=== PATIENT | female | born 1995 | race Caucasian/White ===

== ENCOUNTER 2017-03-16 21:50 | Emergency (ER) | payer SELFPAY ==
[~2017-03-16] VITALS: Ht 154.9 cm; Wt 59.0 kg
--- NOTE | 2017-03-16 23:30 | NUR ---
To bed 6 a 21 yo female bibself with c/o "ulcerative flare up". Patient is aaox4, ambulatory, VSS. Per patient she had a total of 9 bloody stools today. Nondiaphoretic. Gowned. Placed on monitor. Awaiting for er md arias.
--- NOTE | 2017-03-16 23:55 | NUR ---
Dr Rose at bedside for eval.
[2017-03-16] MEDS ORDERED: IV NS 0.9% 1,000 ML ONE (23:59)
[2017-03-16] MEDS ORDERED: IV SET PRIMARY 1 EA INFUS.SET MC ONE (23:59)
[2017-03-16] MEDS ORDERED: HYDROMORPHONE 1 MG/1 ML DISP.SYRIN ONE (23:59)
[2017-03-17] MEDS ORDERED: ONDANSETRON HCL/PF 4 MG/2 ML VIAL IVP ONE
[2017-03-17] MEDS ORDERED: methylPREDNISolone SOD SUCC 125 MG/2ML VIAL IV ONE
[2017-03-17] MEDS ORDERED: IV NS 0.9% 1,000 ML BAG IV ONE
[2017-03-17] MEDS ORDERED: KETOROLAC TROMETHAMINE INJ 30 MG/ML VIAL IV ONE
[2017-03-17] MEDS ORDERED: PANTOPRAZOLE 40 MG VIAL IV ONE
[2017-03-17] MEDS ORDERED: HYDROMORPHONE INJ 2 MG/ML DISP.SYRIN IV ONE
--- NOTE | 2017-03-17 | NUR ---
started a saline lock on the right ac g20, blood drawn and sent to lab.
[2017-03-17] MEDS ORDERED: KETOROLAC TROMETHAMINE 15 MG/ML VIAL ONE (00:04)
[2017-03-17] MEDS ORDERED: SECONDARY IV SET 1 EA INFUS.SET MC ONE (00:05)
[2017-03-17] MEDS ORDERED: methylPREDNISolone SOD SUCC 125 MG/2ML VIAL ONE (00:05)
[2017-03-17] MEDS ORDERED: IV NS 0.9% 100 ML IV ONE (00:05)
[2017-03-17] MEDS ORDERED: ONDANSETRON HCL/PF 4 MG/2 ML VIAL ONE (00:05)
[2017-03-17 00:14] LABS: BASOPHILS # (AUTO) 0.1 /CMM (0.0-0.2); BASOPHILS % (AUTO) 0.6 % (0.0-2.0); EOSINOPHILS # (AUTO) 0.7 /CMM (0.0-0.7); EOSINOPHILS % (AUTO) 6.6 % (0.0-6.0); HEMATOCRIT 36 % (33-45); HEMOGLOBIN 11.7 g/dL (11.5-14.8); LYMPHOCYTES # (AUTO) 2.3 /CMM (0.8-4.8); LYMPHOCYTES % (AUTO) 20.9 % (20.0-44.0); MEAN CORPUSCULAR HEMOGLOBIN 27 PG (26.0-33.0); MEAN CORPUSCULAR HGB CONC 33 g/dl (31.0-36.0); MEAN CORPUSCULAR VOLUME 82 fL (82-100); MONOCYTES % (AUTO) 9.1 % (2.0-12.0); NEUTROPHILS # (AUTO) 6.9 /CMM (1.8-8.9); NEUTROPHILS % (AUTO) 62.8 % (43.0-81.0); PLATELET COUNT (AUTO) 401 /CMM (150-450); RDW COEFFICIENT OF VARIATION 14.4 (11.5-15.0); RED BLOOD CELL COUNT(AUTO) 4.38 MIL/uL (4.0-5.2)
[2017-03-17] MEDS ORDERED: PANTOPRAZOLE 40 MG VIAL ONE (00:16)
[2017-03-17 00:34] LABS: CALCIUM, SERUM 8.3 mg/dL (8.5-10.1); CREATININE 0.7 mg/dL (0.6-1.3); POTASSIUM 3.5 mmol/L (3.5-5.1)
[2017-03-17 00:40] LABS: ALBUMIN 3.8 g/dL (3.4-5.0); BILIRUBIN,TOTAL 0.2 mg/dL (0.2-1.0); TOTAL PROTEIN, SERUM 7.3 g/dL (6.4-8.2)
--- NOTE | 2017-03-17 02:27 | NUR ---
dIV removed. Catheter intact and site benign. Pressure and 4x4 applied to site. No bleeding noted. Patient discharged to home in stable condition. Written and verbal after care instructions given. Patient verbalizes understanding of instruction. Patient is ambulatory with steady gait. No futher complaints.
[2017-03-17 02:30] VITALS: BP 110/68
== END 2017-03-17 02:30 | disposition home or self-care (01) ==
LOC: ER 21:52
DX: K51.90 Ulcerative colitis, unspecified, without complications (principal); F17.210 Nicotine dependence, cigarettes, uncomplicated
CPT/HCPCS: 36415; 71010; 76705; 80048; 80076; 83690; 84484; 85025; 93005; 96361; 96374; 96375; 99285; 99406; A4606 ×2; C9113; J1170; J1885; J2405; J2930; J7030 ×2; Z7610 ×2

== ENCOUNTER 2017-03-30 17:59 | Emergency (ER) | payer SELFPAY ==
[~2017-03-30] VITALS: Ht 154.9 cm; Wt 50.3 kg
--- NOTE | 2017-03-30 18:12 | NUR ---
CALLED TO TRIAGE, WENT OUT TO SMOKE PER ADMITTING
--- NOTE | 2017-03-30 18:21 | NUR ---
2ND CALL, PATIENT IS NOT IN THE WAITING ROOM.
--- NOTE | 2017-03-30 18:24 | NUR ---
PT C/O RECTAL BLEED X 2 MONTHS, BOWEL MOVEMENT ABOUT 22 EPISODES TODAY WITH RED BLOOD, ABDOMINAL PAIN +VOMITING, PLACED ON MONITOR. VSS. AWAITING MD ORDER
[2017-03-30] MEDS ORDERED: IV SET PRIMARY PUMP SET 1 EA INFUS.SET MC ONE (18:54)
[2017-03-30] MEDS ORDERED: methylPREDNISolone SOD SUCC 125 MG/2ML VIAL ONE (18:54)
[2017-03-30] MEDS ORDERED: IV NS 0.9% 1,000 ML ONE (18:54)
[2017-03-30] MEDS ORDERED: ONDANSETRON HCL/PF 4 MG/2 ML VIAL ONE (18:56)
[2017-03-30] MEDS ORDERED: methylPREDNISolone SOD SUCC 125 MG/2ML VIAL IV ONE (19:00)
[2017-03-30] MEDS ORDERED: ONDANSETRON HCL/PF 4 MG/2 ML VIAL IV ONE (19:00)
[2017-03-30] MEDS ORDERED: IV NS 0.9% 1,000 ML BAG IV ONE (19:00)
[2017-03-30 19:02] LABS: APPEARANCE,URINE Clear (CLEAR); BILIRUBIN,URINE Negative (NEGATIVE); BLOOD, URINE Negative Ery/uL (NEGATIVE); COLOR,URINE Yellow (YELLOW); KETONES,URINE Negative (NEGATIVE); LEUKOCYTE ESTERASE ,URINE Negative (NEGATIVE); NITRITE, URINE Negative (NEGATIVE); PROTEIN,URINE Negative (NEGATIVE); UGLUCOSE Negative (NEGATIVE); UROBILINOGEN,URINE 0.2 EU/dL (0.2)
[2017-03-30 19:03] LABS: BASOPHILS # (AUTO) 0.1 /CMM (0.0-0.2); BASOPHILS % (AUTO) 0.8 % (0.0-2.0); EOSINOPHILS # (AUTO) 0.5 /CMM (0.0-0.7); EOSINOPHILS % (AUTO) 5.2 % (0.0-6.0); HEMATOCRIT 31 % (33-45); HEMOGLOBIN 10.7 g/dL (11.5-14.8); LYMPHOCYTES # (AUTO) 1.9 /CMM (0.8-4.8); LYMPHOCYTES % (AUTO) 20.2 % (20.0-44.0); MEAN CORPUSCULAR HEMOGLOBIN 28 PG (26.0-33.0); MEAN CORPUSCULAR HGB CONC 34 g/dl (31.0-36.0); MEAN CORPUSCULAR VOLUME 81 fL (82-100); MONOCYTES # (AUTO) 0.9 /CMM (0.1-1.30); MONOCYTES % (AUTO) 9.4 % (2.0-12.0); NEUTROPHILS # (AUTO) 5.8 /CMM (1.8-8.9); NEUTROPHILS % (AUTO) 64.4 % (43.0-81.0); PLATELET COUNT (AUTO) 359 /CMM (150-450); RDW COEFFICIENT OF VARIATION 13.7 (11.5-15.0); RED BLOOD CELL COUNT(AUTO) 3.83 MIL/uL (4.0-5.2); WHITE BLOOD COUNT (AUTO) 9.2 K/uL (4.3-11.0)
[2017-03-30 19:04] LABS: PREGNANCY TEST URINE QUAL NEGATIVE (NEGATIVE)
--- NOTE | 2017-03-30 19:05 | NUR ---
IV ACCESS STARTED. BLOOD DRAWN FOR LABS. PT MEDICATED ORDERED. URINE SAMPLE OBTAINED, SENT.
[2017-03-30 19:07] LABS: CREATININE 0.8 mg/dL (0.6-1.3); POTASSIUM 3.6 mmol/L (3.5-5.1)
[2017-03-30 19:13] LABS: ALBUMIN 3.4 g/dL (3.4-5.0); BILIRUBIN,TOTAL 0.1 mg/dL (0.2-1.0); TOTAL PROTEIN, SERUM 6.9 g/dL (6.4-8.2)
--- NOTE | 2017-03-30 19:19 | NUR ---
PT REPORT RECIVED FROM TATYANA POND, PT IN BED AND STATES SHE IS HVAING SOME RECTAL PAIN, PT FRIEND AT BEDSIDE, PT ON MONITOR, WILL CONTINUE TO MONITOR.
[2017-03-30 20:04] VITALS: BP 110/81
--- NOTE | 2017-03-30 20:04 | NUR ---
Patient discharged to home in stable condition. Written and verbal after care instructions given. Patient verbalizes understanding of instruction.IV removed. Catheter intact and site benign. Pressure and 4x4 applied to site. No bleeding noted.
== END 2017-03-30 20:04 | disposition home or self-care (01) ==
LOC: ER 18:00
DX: K51.90 Ulcerative colitis, unspecified, without complications (principal); F17.210 Nicotine dependence, cigarettes, uncomplicated
CPT/HCPCS: 36415; 80048; 80076; 81001; 84703; 85025; 96361; 96374; 96375; 99284; A4606; J2405; J2930; J7030; Z7610; 81000-TC

== ENCOUNTER 2017-04-04 08:05 | Emergency (ER) | payer SELFPAY ==
[~2017-04-04] VITALS: Ht 154.9 cm; Wt 49.9 kg
--- NOTE | 2017-04-04 08:11 | NUR ---
AAOX3, bbra from [place]: pt states rectal bleeding on/off x 2 months, hx of ulcerative colitis. skin is warm and dry. resp is even and unlabored with nad noted. Patient was seen here last 03/30/[address] Resendez at BS for eval.
--- NOTE | 2017-04-04 08:15 | NUR ---
DR MCGARRY AT BEDSIDE FOR EVAL
--- NOTE | 2017-04-04 08:18 | NUR ---
pt to ed room 21. bbra from [facility]: pt states rectal bleeding x 2 days, hx of uc. a/a/o. vs wnl. changed to gown. connected to monitor. side rails up. hob elevated. seen and evaluated by ed provider.
[2017-04-04] MEDS ORDERED: IV NS 0.9% 1,000 ML ONE (08:20)
[2017-04-04] MEDS ORDERED: ONDANSETRON HCL/PF 4 MG/2 ML VIAL ONE (08:20)
[2017-04-04] MEDS ORDERED: IV SET PRIMARY 1 EA INFUS.SET MC ONE (08:20)
[2017-04-04] MEDS ORDERED: MORPHINE SULFATE INJ 4 MG/ML DISP.SYRIN ONE (08:20)
--- NOTE | 2017-04-04 08:20 | NUR ---
RAC #[id number] IV ACCESS. BLOOD SAMPLE COLLECTED SENT TO LAB
--- NOTE | 2017-04-04 08:20 | NUR ---
URINE SAMPLE COLLECTED SENT TO LAB
[2017-04-04] MEDS ORDERED: MORPHINE SULFATE INJ 2 MG/ML DISP.SYRIN IV ONE (08:30)
[2017-04-04] MEDS ORDERED: ONDANSETRON HCL/PF 4 MG/2 ML VIAL IVP ONE (08:30)
[2017-04-04] MEDS ORDERED: IV NS 0.9% 1,000 ML BAG IV ONE (08:30)
[2017-04-04 08:43] LABS: BASOPHILS % (AUTO) 0.4 % (0.0-2.0); EOSINOPHILS # (AUTO) 0.5 /CMM (0.0-0.7); EOSINOPHILS % (AUTO) 4.2 % (0.0-6.0); HEMATOCRIT 38 % (33-45); HEMOGLOBIN 12.3 g/dL (11.5-14.8); LYMPHOCYTES # (AUTO) 1.9 /CMM (0.8-4.8); LYMPHOCYTES % (AUTO) 16.7 % (20.0-44.0); MEAN CORPUSCULAR HEMOGLOBIN 26 PG (26.0-33.0); MEAN CORPUSCULAR HGB CONC 33 g/dl (31.0-36.0); MEAN CORPUSCULAR VOLUME 79 fL (82-100); MONOCYTES # (AUTO) 1.4 /CMM (0.1-1.30); MONOCYTES % (AUTO) 12.3 % (2.0-12.0); NEUTROPHILS # (AUTO) 7.5 /CMM (1.8-8.9); NEUTROPHILS % (AUTO) 66.4 % (43.0-81.0); PLATELET COUNT (AUTO) 522 /CMM (150-450); RDW COEFFICIENT OF VARIATION 14.2 (11.5-15.0); RED BLOOD CELL COUNT(AUTO) 4.75 MIL/uL (4.0-5.2); WHITE BLOOD COUNT (AUTO) 11.3 K/uL (4.3-11.0)
[2017-04-04 08:44] LABS: APPEARANCE,URINE SL CLOUDY (CLEAR); BILIRUBIN,URINE 1+ (NEGATIVE); BLOOD, URINE 1+ Ery/uL (NEGATIVE); COLOR,URINE YELLOW (YELLOW); KETONES,URINE NEGATIVE (NEGATIVE); LEUKOCYTE ESTERASE ,URINE NEGATIVE (NEGATIVE); NITRITE, URINE NEGATIVE (NEGATIVE); PH,URINE 5.5 (5.0-8.0); PROTEIN,URINE NEGATIVE (NEGATIVE); UGLUCOSE NEGATIVE (NEGATIVE); UROBILINOGEN,URINE 0.2 EU/dL (0.2)
[2017-04-04 08:48] LABS: PREGNANCY TEST URINE QUAL NEGATIVE (NEGATIVE)
[2017-04-04 08:51] LABS: ADD URINE CULTURE NO; BACTERIA,URINE Few /HPF (None Seen); SQUAMOUS EPITHELIAL CELL,UR Few /HPF (None Seen); WBC,URINE 0-2 /HPF (0-3)
[2017-04-04 08:53] LABS: CALCIUM, SERUM 9.2 mg/dL (8.5-10.1); CREATININE 0.7 mg/dL (0.6-1.3); POTASSIUM 4.1 mmol/L (3.5-5.1)
[2017-04-04 08:59] LABS: ALBUMIN 4.1 g/dL (3.4-5.0); BILIRUBIN,DIRECT 0.1 mg/dL (0.0-0.2); BILIRUBIN,TOTAL 0.3 mg/dL (0.2-1.0); TOTAL PROTEIN, SERUM 8.4 g/dL (6.4-8.2)
[2017-04-04 09:17] VITALS: BP 116/81
--- NOTE | 2017-04-04 09:17 | NUR ---
IV removed. Catheter intact and site benign. Pressure and 4x4 applied to site. No bleeding noted.Patient discharged to home in stable condition. Written and verbal after care instructions given. Patient verbalizes understanding of instruction.
== END 2017-04-04 09:18 | disposition home or self-care (01) ==
LOC: ER 08:07
DX: K51.90 Ulcerative colitis, unspecified, without complications (principal); F17.200 Nicotine dependence, unspecified, uncomplicated
CPT/HCPCS: 36415; 80048; 80076; 81001; 83690; 84703; 85025; 96361; 96374; 96375; 99284; A4606; J2270; J2405; J7030; Z7610; 81000-TC

== ENCOUNTER 2017-09-04 10:37 | Emergency (ER) | payer MEDICAID, OTHER ==
[~2017-09-04] VITALS: Ht 154.9 cm; Wt 52.6 kg
--- NOTE | 2017-09-04 10:40 | NUR ---
[id number]: ABDOMINAL PAIN. A/OX 4. BREATHING EVEN AND UNLABORED. NO SOB. VITALS STABLE. SAFETY AND COMFORT MEASURES IN PLACE. AWAITING MD ORDERS.
[2017-09-04] MEDS ORDERED: ONDANSETRON HCL/PF 4 MG/2 ML VIAL ONE (11:26)
[2017-09-04] MEDS ORDERED: HYDROMORPHONE INJ 2 MG/ML DISP.SYRIN ONE (11:27)
[2017-09-04] MEDS ORDERED: ONDANSETRON HCL/PF 4 MG/2 ML VIAL IVP ONE (11:30)
[2017-09-04] MEDS ORDERED: IV NS 0.9% 1,000 ML BAG IV ONE (11:30)
[2017-09-04] MEDS ORDERED: HYDROMORPHONE INJ 2 MG/ML DISP.SYRIN IV ONE (11:30)
--- NOTE | 2017-09-04 11:30 | NUR ---
URINE AND BLOOD SAMPLE SENT TO LAB
[2017-09-04 11:39] LABS: BASOPHILS % (AUTO) 0.1 % (0.0-2.0); EOSINOPHILS # (AUTO) 0.1 /CMM (0.0-0.7); EOSINOPHILS % (AUTO) 0.9 % (0.0-6.0); HEMATOCRIT 32 % (33-45); HEMOGLOBIN 9.7 g/dL (11.5-14.8); LYMPHOCYTES % (AUTO) 9.6 % (20.0-44.0); MEAN CORPUSCULAR HEMOGLOBIN 21 PG (26.0-33.0); MEAN CORPUSCULAR HGB CONC 31 g/dl (31.0-36.0); MEAN CORPUSCULAR VOLUME 67 fL (82-100); MONOCYTES # (AUTO) 1.3 /CMM (0.1-1.30); MONOCYTES % (AUTO) 11.7 % (2.0-12.0); NEUTROPHILS # (AUTO) 8.3 /CMM (1.8-8.9); NEUTROPHILS % (AUTO) 77.7 % (43.0-81.0); PLATELET COUNT (AUTO) 435 /CMM (150-450); RDW COEFFICIENT OF VARIATION 21.5 (11.5-15.0); RED BLOOD CELL COUNT(AUTO) 4.68 MIL/uL (4.0-5.2); WHITE BLOOD COUNT (AUTO) 10.7 K/uL (4.3-11.0)
[2017-09-04 11:47] LABS: APPEARANCE,URINE CLOUDY (CLEAR); BILIRUBIN,URINE 2+ (NEGATIVE); BLOOD, URINE 2+ Ery/uL (NEGATIVE); COLOR,URINE YELLOW (YELLOW); KETONES,URINE 2+ (NEGATIVE); LEUKOCYTE ESTERASE ,URINE NEGATIVE (NEGATIVE); NITRITE, URINE NEGATIVE (NEGATIVE); PROTEIN,URINE 1+ mg/dl (NEGATIVE); UGLUCOSE NEGATIVE (NEGATIVE); UROBILINOGEN,URINE 0.2 EU/dL (0.2)
[2017-09-04 11:53] LABS: BACTERIA,URINE 1+ /HPF (None Seen); MUCUS,URINE Few /LPF (None Seen); RBC,URINE 0-2 /HPF (0-2); URINE AMORPHOUS URATE Few /HPF (None Seen); WBC,URINE 0-2 /HPF (0-3)
[2017-09-04 11:58] LABS: CREATININE 0.6 mg/dL (0.6-1.3); POTASSIUM 4.1 mmol/L (3.5-5.1)
[2017-09-04 12:03] LABS: ALBUMIN 2.4 g/dL (3.4-5.0); BILIRUBIN,TOTAL 0.2 mg/dL (0.2-1.0)
--- NOTE | 2017-09-04 13:00 | NUR ---
PATIENT REQUESTING TO BE ADMITTED FOR ABDOMINAL PAIN BUT DR WEEKS COULD NOT FIND ANY MEDICAL REASON TO ADMIT, PATIENT C/O ABDOMINAL PAIN BUT EATING CHIPS AT THIS TIME. REJI ARELLANO CALLED FOR ASSISTANCE AND RESOURCES.
--- NOTE | 2017-09-04 13:06 | NUR ---
MCKINLEY MENDOZA AT . PT REFUSED SNF.
[2017-09-04 13:19] VITALS: BP 123/82
[2017-09-04 13:30] LABS: BAND % (MANUAL) 22 % (0.0-5.0); EOSINOPHILS % (MANUAL) 1 % (0-4); LYMPHOCYTES % (MANUAL) 16 % (16-48); MONOCYTES % (MANUAL) 9 % (0-11.0); NEUTROPHILS % (MANUAL) 52 (42-76)
--- NOTE | 2017-09-04 13:30 | NUR ---
Social service consult requested by ED FIDELINA Nieves regarding homelessness and pt. refusing to leave. Pt. is medically cleared for discharge. MCKINLEY spoke with Dr. Goldstein as well, who informed MCKINLEY that the ED is familiar with pt. and pt. wants to be admitted, however pt. is medically cleared for discharge. MCKINLEY met with pt. bedside. Pt. appeared disheveled and stated she is homeless. SW offered pt. homeless usp placement and homeless resources, however pt. declined usp placement and resources and stated she has a studio to go to. MCKINLEY offered pt. bus tokens which pt. stated she will accept. Pt. continued to state she has colitis and began crying, however she was medically cleared by the doctor. Pt. complaining of stomach pain, however, is eating doritos chips. MCKINLEY came back to with bus tokens to give to pt., however, pt. became belligerent and began being verbally abuse toward DEJAH Clark. Security was called and pt was accompanied out of the emergency department.
--- NOTE | 2017-09-04 13:32 | NUR ---
IV removed. Catheter intact and site benign. Pressure and 4x4 applied to site. No bleeding noted.
--- NOTE | 2017-09-04 13:32 | NUR ---
PT REFUSED TO SIGN.
== END 2017-09-04 13:31 | disposition home or self-care (01) ==
LOC: EDBD → ER 10:40
DX: R10.84 Generalized abdominal pain (principal); F17.200 Nicotine dependence, unspecified, uncomplicated
CPT/HCPCS: 36415; 80048-TC; 80076-TC; 80305; 81000-TC; 83690-TC; 84703-TC; 85025-TC; A4606; J1170; J2405; J7030; Z7610

== ENCOUNTER 2017-09-05 08:27 | Inpatient (IN) | payer OTHER ==
[~2017-09-05] VITALS: Ht 154.9 cm; Wt 49.9 kg
--- NOTE | 2017-09-05 10:39 | NUR ---
PAGED DR. WALTON FOR ADMISSION
[2017-09-05] MEDS ORDERED: ONDANSETRON HCL/PF 4 MG/2 ML VIAL IVP ONE (11:00)
[2017-09-05] MEDS ORDERED: MORPHINE SULFATE INJ 2 MG/ML DISP.SYRIN IV ONE (11:00)
[2017-09-05] MEDS ORDERED: IV NS 0.9% 1,000 ML BAG IV ONE ×2 (11:00→13:00)
[2017-09-05] MEDS ORDERED: DICYCLOMINE HCL INJ 20 MG/2 ML AMPUL IM ONE ×2 (11:00→11:38)
[2017-09-05 11:17] LABS: EOSINOPHILS % (AUTO) 0.3 % (0.0-6.0); HEMATOCRIT 30 % (33-45); HEMOGLOBIN 9.8 g/dL (11.5-14.8); LYMPHOCYTES # (AUTO) 0.8 /CMM (0.8-4.8); LYMPHOCYTES % (AUTO) 6.9 % (20.0-44.0); MEAN CORPUSCULAR HEMOGLOBIN 22 PG (26.0-33.0); MEAN CORPUSCULAR HGB CONC 32 g/dl (31.0-36.0); MEAN CORPUSCULAR VOLUME 67 fL (82-100); MONOCYTES # (AUTO) 1.8 /CMM (0.1-1.30); MONOCYTES % (AUTO) 14.9 % (2.0-12.0); NEUTROPHILS # (AUTO) 9.2 /CMM (1.8-8.9); NEUTROPHILS % (AUTO) 77.9 % (43.0-81.0); PLATELET COUNT (AUTO) 451 /CMM (150-450); RDW COEFFICIENT OF VARIATION 21.4 (11.5-15.0); RED BLOOD CELL COUNT(AUTO) 4.51 MIL/uL (4.0-5.2); WHITE BLOOD COUNT (AUTO) 11.8 K/uL (4.3-11.0)
[2017-09-05 11:27] LABS: CALCIUM, SERUM 7.9 mg/dL (8.5-10.1); CREATININE 0.5 mg/dL (0.6-1.3); POTASSIUM 3.9 mmol/L (3.5-5.1)
[2017-09-05 11:34] LABS: INR 1.07 (0.87-1.13); PROTHROMBIN TIME 11.1 SECS (9.5-12.7)
[2017-09-05 11:37] LABS: APPEARANCE,URINE Clear (CLEAR); BILIRUBIN,URINE SMALL (NEGATIVE); BLOOD, URINE Moderate Ery/uL (NEGATIVE); COLOR,URINE Yellow (YELLOW); KETONES,URINE >=160 (NEGATIVE); LEUKOCYTE ESTERASE ,URINE Negative (NEGATIVE); NITRITE, URINE Negative (NEGATIVE); PH,URINE 5.5 (5.0-8.0); PROTEIN,URINE 30 mg/dl (NEGATIVE); UGLUCOSE Negative (NEGATIVE); UROBILINOGEN,URINE 0.2 EU/dL (0.2)
[2017-09-05] MEDS ORDERED: MORPHINE SULFATE INJ 2 MG/ML DISP.SYRIN ONE (11:38)
[2017-09-05] MEDS ORDERED: ONDANSETRON HCL/PF 4 MG/2 ML VIAL ONE (11:38)
[2017-09-05 11:39] LABS: BACTERIA,URINE Few /HPF (None Seen); SQUAMOUS EPITHELIAL CELL,UR Moderate /HPF (None Seen)
[2017-09-05 11:42] LABS: ALBUMIN 2.3 g/dL (3.4-5.0); BILIRUBIN,DIRECT 0.1 mg/dL (0.0-0.2); BILIRUBIN,TOTAL 0.3 mg/dL (0.2-1.0); TOTAL PROTEIN, SERUM 5.9 g/dL (6.4-8.2)
[2017-09-05 12:11] LABS: BAND % (MANUAL) 39 % (0.0-5.0); LYMPHOCYTES % (MANUAL) 5 % (16-48); MONOCYTES % (MANUAL) 12 % (0-11.0); NEUTROPHILS % (MANUAL) 44 (42-76)
[2017-09-05] MEDS ORDERED: VANCOMYCIN 1 GM in IV D5W 250 ML IV ONE (13:00)
[2017-09-05] MEDS ORDERED: PIPERACILLIN /TAZOBACTAM 3.375 G in IV D5W 50 ML IV ONE (13:00)
[2017-09-05] MEDS ORDERED: ACETAMINOPHEN 325 MG TABLET PO PRN (14:30)
[2017-09-05] MEDS ORDERED: ONDANSETRON HCL/PF 4 MG/2 ML VIAL IVP PRN (14:30)
[2017-09-05] MEDS ORDERED: ZOLPIDEM TARTRATE 5 MG TABLET PO PRN (14:30)
[2017-09-05] MEDS ORDERED: Z GUARD REMEDY 2 OZ OINT TP PRN (14:30)
--- NOTE | 2017-09-05 14:35 | NUR ---
SET UP S TRANSPORT WITH [facility] TRIP# [id number]
[2017-09-05 16:00] VITALS: BP 88/52
[2017-09-05] MEDS: IV D5/0.45 NACL 1,000 ML IV PRN (16:18)
--- NOTE | 2017-09-05 16:50 | NUR ---
RN INITIAL NOTES PATIENT RECEIVED FROM ER. NO SOB OR DISTRESS. PATIENT REPORTS PAIN AT 9/10 IN LOWER ABDOMEN, WILL FOLLOW UP WITH PAIN MEDICATION WHEN ABLE. BELONGINGS LIST CHECKED AND ITEMS ACCOUNTED FOR. PATIENT ORIENTED TO ROOM AND CALL LIGHT. BED IN A LOW POSITION, CALL LIGHT WITHIN PATIENT REACH. WILL HANG FLUIDS AND ADMIN MEDS WHEN AVAILABLE.
[2017-09-05 17:00] VITALS: BP 88/52
[2017-09-05] MEDS: METRONIDAZOLE 500MG/ NS 100ML 500 MG in PREMIX 1 EA IV SCH ×2 (17:02→20:57)
[2017-09-05] MEDS: MORPHINE SULFATE INJ 2 MG/ML DISP.SYRIN IV PRN ×2 (17:09→20:39)
--- NOTE | 2017-09-05 18:09 | NUR ---
RN NOTES CALLED PHARMACY [facility] IS STILL NOT ON FLOOR. THEY STATE THEY ONLY HAVE ONE TECH WHO IS MAKING ROUNDS AND WILL SEND IT TOD.
[2017-09-05] MEDS: MESALAMINE 400 MG CAP PO SCH (18:18)
--- NOTE | 2017-09-05 18:36 | NUR ---
RN CLOSING NOTES NO SIGNIFICANT CHANGES IN PATIENT CONDITION. NO SOB OR DISTRESS NOTED AT THIS TIME. PATIENT REPORTS TOLERABLE PAIN. PATIENT HAD TWO BLOODY STOOLS SINCE COMING TO THE FLOOR. BED IN A LOW POSITION, CALL LIGHT WITHIN PATIENT REACH. WILL ENDORSE FOR BARTOLOME.
--- NOTE | 2017-09-05 19:28 | NUR ---
MS/RN RECEIVE PATIENT SLEEPING, AROUSABLE, APPEAR COMFORTABLE, BREATHING EVEN AND UNLABORED, CALL LIGHT IN REACH. WILL MONITOR.
[2017-09-05 20:00] VITALS: BP 104/61
[2017-09-06] MEDS: MORPHINE SULFATE INJ 2 MG/ML DISP.SYRIN IV PRN ×5 (01:33→21:07)
[2017-09-06] MEDS: IV D5/0.45 NACL 1,000 ML IV PRN ×2 (04:12→15:35)
[2017-09-06] MEDS: METRONIDAZOLE 500MG/ NS 100ML 500 MG in PREMIX 1 EA IV SCH (05:33)
--- NOTE | 2017-09-06 06:37 | NUR ---
MS/RN PATIENT AWAKE, C/O ABDOMINAL PAIN 10/, MEDICATED WITH MORPHINE 1 MG IVP ORDERED. HAD AN ON AND OFF SLEEP THE WHOLE NIGHT. ALL NEEDS ATTENDED AT THIS TIME. WILL CONTINUE TO MONITOR.
[2017-09-06 06:56] LABS: BASOPHILS % (AUTO) 0.3 % (0.0-2.0); EOSINOPHILS % (AUTO) 0.2 % (0.0-6.0); HEMATOCRIT 28 % (33-45); HEMOGLOBIN 8.8 g/dL (11.5-14.8); MEAN CORPUSCULAR HEMOGLOBIN 22 PG (26.0-33.0); MEAN CORPUSCULAR HGB CONC 32 g/dl (31.0-36.0); MEAN CORPUSCULAR VOLUME 68 fL (82-100); MONOCYTES # (AUTO) 1.3 /CMM (0.1-1.30); MONOCYTES % (AUTO) 9.5 % (2.0-12.0); NEUTROPHILS # (AUTO) 11.5 /CMM (1.8-8.9); PLATELET COUNT (AUTO) 495 /CMM (150-450); RDW COEFFICIENT OF VARIATION 23.2 (11.5-15.0); RED BLOOD CELL COUNT(AUTO) 4.07 MIL/uL (4.0-5.2); WHITE BLOOD COUNT (AUTO) 13.8 K/uL (4.3-11.0)
--- NOTE | 2017-09-06 07:10 | NUR ---
MS RN OPENING NOTES RECEIVED PT FROM NIGHTSHIFT NURSE IN STABLE CONDITION. PT IS A/O X4. NO SOB NOTED. BREATHING IS EVEN AND UNLABORED. PER NIGHTSHIFT NURSE, PT HAD ABOUT 10 BLOODY STOOLS DURING THE NIGHT. PT STATES THAT SHE IS A BIT WEAK AT THE MOMENT AND WOULD LIKE TO REST. PT WAS TOLD TO NOTIFY MYSELF OR THE NURSING CENTER TUTOR WHEN SHE NEEDS ASSISTANCE AND ASSISTANCE TO THE BATHROOM DUE TO HER CONDITION. PT VERBALIZED UNDERSTANDING. IV NOTED ON RIGHT AC 20 INFUSING D5 1/2 NS @ 125ML/HR. PT IS TOLERATING INFUSION WELL. NO REDNESS OR SIGNS OF INFILTRATION NOTED. BED IN LOW LOCKED POSITION, BED ALARM ON, SIDE RAILS UP X2, CALL LIGHT WITHIN REACH. WILL CONTINUE TO CLOSELY MONITOR.
[2017-09-06 07:14] LABS: ALBUMIN 1.9 g/dL (3.4-5.0); BILIRUBIN,TOTAL 0.2 mg/dL (0.2-1.0); CALCIUM, SERUM 7.3 mg/dL (8.5-10.1); CREATININE 0.4 mg/dL (0.6-1.3); MAGNESIUM 1.5 mg/dL (1.8-2.4); PHOSPHORUS 2.5 mg/dL (2.5-4.9); POTASSIUM 3.2 mmol/L (3.5-5.1); TOTAL PROTEIN, SERUM 4.9 g/dL (6.4-8.2)
[2017-09-06 07:35] LABS: BAND % (MANUAL) 46 % (0.0-5.0); LYMPHOCYTES % (MANUAL) 12 % (16-48); MONOCYTES % (MANUAL) 11 % (0-11.0); NEUTROPHILS % (MANUAL) 31 (42-76)
[2017-09-06 08:00] VITALS: BP 105/64
--- NOTE | 2017-09-06 08:13 | NUR ---
MS RN NOTES PER DR CLIFTON, DR. MORENO WILL BE CONTACTED FOR GI CONSULT AND POSSIBLE COLONOSCOPY
[2017-09-06] MEDS ORDERED: PIPERACILLIN /TAZOBACTAM 4.5 G in IV D5W 50 ML IV SCH (09:00)
[2017-09-06] MEDS: MESALAMINE 400 MG CAP PO SCH ×2 (09:10→17:27)
[2017-09-06] MEDS: Magnesium 1GM/D5W 100ML PREMIX 100 ML IV SCH ×2 (11:04→13:36)
[2017-09-06] MEDS: PIPERACILLIN /TAZOBACTAM 3.375 G in IV D5W 50 ML IV SCH ×3 (13:05→23:28)
[2017-09-06] MEDS: POTASSIUM CHLORIDE 20 MEQ TAB.PRT.SR PO SCH ×2 (13:06→13:36)
[2017-09-06 16:00] VITALS: BP 107/62
--- NOTE | 2017-09-06 18:12 | NUR ---
MS RN CLOSING NOTES PT REMAINS STABLE. ALL NEEDS MET AND ANTICIPATED FOR. ALL DUE MEDS GIVEN. PT CONTINUES TO HAVE WATERY BLOODY BOWEL MOVEMENTS. AGGRESSIVE IV HYDRATION INFUSION OF D5 1/2 NS @ 125ML/HR CONTINUES TO RUN ORDERED. SKIN CARE RENDERED. PT WAS KEPT DRY AND CLEAN THROUGHOUT SHIFT. BED IN LOW LOCKED POSITION, SIDE RAILS UP X2, CALL LIGHT WITHIN REACH, COMMODE BY BEDSIDE. WILL ENDORSE TO NIGHTSHIFT NURSE FOR BARTOLOME
[2017-09-06 19:52] VITALS: BP 107/68
[2017-09-06 20:00] VITALS: BP 107/68
--- NOTE | 2017-09-06 20:30 | NUR ---
MS/RN NOTES RECEIVE PATIENT AND WAS ENDORSE BY RN FOR BARTOLOME, PATIENT OBSERVE ASLEEP W/ NOTED GUARDING ON ABDOMEN. WILL MONITOR FOR PAIN AND BM. WILL CONTINUE TO PROVIDE CARE.
--- NOTE | 2017-09-06 21:05 | NUR ---
MS/RN NOTES PATIENT IN SEVERE PAIN AT 9/10, W/ N/V EPISODE WILL BE GIVING THE PRN MED MORPHINE AND CHECK PAIN RELIEF.
[2017-09-07] MEDS: IV D5/0.45 NACL 1,000 ML IV PRN ×2 (00:53→17:30)
[2017-09-07] MEDS: MORPHINE SULFATE INJ 2 MG/ML DISP.SYRIN IV PRN (01:01)
--- NOTE | 2017-09-07 01:07 | NUR ---
ms/rn notes pain reported by patient, noted discomfort, , guarding and grimace w/ loud cry while doing bm, observed scanty blood in stool, b/p check 111/72.
--- NOTE | 2017-09-07 01:34 | NUR ---
ms/rn notes patient provided blanket to keep warm
--- NOTE | 2017-09-07 01:36 | NUR ---
ms/rn notes patient able to rest comfortably in a little while but when being moved w/ pain reported in abdomen. provide warm blanket and will inform for pain relief.
--- NOTE | 2017-09-07 04:08 | NUR ---
MS/RN NOTES MD INFORMED REGARDING PATIENT CONDITION W/ BLOODY STOOL DARK RED W/ CLOTS AND ON MORPHINE 1MG/0.5ML W/ ABDOMINAL PAIN NOT RELIEVED. DILAUDID 1MG/ML WAS ORDERED EVERY 3 HRS PRN AND DISCONTINUED MORPH.INE ORDER, ORDER LAB CBC IN AM. WILL CONTINUE TO MONITOR.
[2017-09-07] MEDS: HYDROMORPHONE 1 MG/1 ML DISP.SYRIN IV PRN ×6 (04:13→23:25)
[2017-09-07] MEDS: PIPERACILLIN /TAZOBACTAM 3.375 G in IV D5W 50 ML IV SCH ×4 (05:16→23:25)
--- NOTE | 2017-09-07 06:41 | NUR ---
PATIENT ALERT, OREINTED X3, ABLE TO VERBALIZE NEEDS AT ALL TIMES, PAIN MEDICATION PROVIDED, PAIN IN ABDOMEN, W/ BOWEL MOVEMENT AND SCANTY BLOOD IN STOOL. REQUESTING FOR PAIN MEDICATION DOSE CHANGE/INFLAMATION TO CONTROL.ATTEND TO NEEDS AT ALL TIMES. IV HYDRATION. CALL LIGHTS WITHIN REACH, WILL CONTINUE TO MONITOR AND ENDORSE TO AM RN FOR BARTOLOME.
[2017-09-07 07:20] LABS: BASOPHILS % (AUTO) 0.1 % (0.0-2.0); EOSINOPHILS % (AUTO) 0.2 % (0.0-6.0); HEMATOCRIT 31 % (33-45); HEMOGLOBIN 9.7 g/dL (11.5-14.8); LYMPHOCYTES # (AUTO) 0.9 /CMM (0.8-4.8); MEAN CORPUSCULAR HEMOGLOBIN 21 PG (26.0-33.0); MEAN CORPUSCULAR HGB CONC 31 g/dl (31.0-36.0); MEAN CORPUSCULAR VOLUME 68 fL (82-100); MONOCYTES # (AUTO) 1.6 /CMM (0.1-1.30); MONOCYTES % (AUTO) 10.5 % (2.0-12.0); NEUTROPHILS % (AUTO) 83.2 % (43.0-81.0); PLATELET COUNT (AUTO) 569 /CMM (150-450); RDW COEFFICIENT OF VARIATION 23.5 (11.5-15.0); RED BLOOD CELL COUNT(AUTO) 4.53 MIL/uL (4.0-5.2); WHITE BLOOD COUNT (AUTO) 15.6 K/uL (4.3-11.0)
[2017-09-07 07:29] LABS: CALCIUM, SERUM 7.3 mg/dL (8.5-10.1); CREATININE 0.4 mg/dL (0.6-1.3); MAGNESIUM 2.1 mg/dL (1.8-2.4); POTASSIUM 3.6 mmol/L (3.5-5.1)
--- NOTE | 2017-09-07 07:41 | NUR ---
RN NOTES PT AWAKE AND ORIENTED. RESTING IN BED. PT COMPLAINING OF ABD PAIN. PT GIVEN DILAUDID TO ADDRESS PAIN. WILL FOLLOW UP AND CONTINUE TO MONITOR. CALL LIGHT WITHIN REACH.
--- NOTE | 2017-09-07 07:41 | NUR ---
ms/rn notes PATIENT VERBALIZE PAIN ON ABDOMEN AT 9/10, GUARDING , GRIMACE AND DILAUDID 1MG/1ML GIVEN
[2017-09-07 08:00] VITALS: BP 107/70
[2017-09-07] MEDS: MESALAMINE 400 MG CAP PO SCH ×2 (09:24→17:30)
[2017-09-07 10:24] LABS: BAND % (MANUAL) 33 % (0.0-5.0); LYMPHOCYTES % (MANUAL) 10 % (16-48); MONOCYTES % (MANUAL) 13 % (0-11.0); NEUTROPHILS % (MANUAL) 44 (42-76)
--- NOTE | 2017-09-07 11:15 | NUR ---
RN NOTES DR CLIFTON INFORMED PT PLAN OF CARE. PT RAISED HER VOICE.
--- NOTE | 2017-09-07 13:04 | NUR ---
Social service consult requested by Dr. Novoa for homelessness. Pt. is a 22 year old female who was admitted to [facility] for colitis. SW is familiar with pt. from an ER visit on ThursdaySeptember 04. SW met with pt. bedside. Pt. appeared disheveled and dirty. Pt. recognized SW from her ER visit on Thursday and stated, " go away lady, I don't want any usp placement or resources". SW informed pt. that she heard her request and wanted to confirm what her discharge plan is. Pt. stated, " I go back to the streets". Pt. is a crystal methamphetamine user and is very uncooperative and rude. No other social service needs are requested at this time. Med Surg CRCliff Jett was informed about pt's discharge plan to the streets.
[2017-09-07 16:00] VITALS: BP 102/63
--- NOTE | 2017-09-07 18:40 | NUR ---
RN CLOSING NOTES PT RESTING IN BED. FAMILY MEMBER AT BEDSIDE. CURRENTLY NO APPARENT S/S OF PAIN OR DISCOMFORT. PAIN CONTROLLED BY MEDICATIONS. IV FLUID OF D5 1/2 NS @ 125ML/HR AND ZOSYN @ 100ML/HR TOLERATED WELL. PT LOOSE WATERY BOWEL MOVEMENTS. PT WAS KEPT DRY AND CLEAN THROUGHOUT SHIFT. BED IN LOW LOCKED POSITION, SIDE RAILS UP X2, CALL LIGHT WITHIN REACH, COMMODE BY BEDSIDE.
--- NOTE | 2017-09-07 19:20 | NUR ---
MS/RN NOTES RECEIVED PT. LYING IN BED RESTING. PT. IS EASILY AROUSABLE TO NAME. AWAKE, ALERT AND ORIENTED X4. BREATHING EVEN AND UNLABORED ON ROOM AIR. NO SOB, RESPIRATORY DISTRESS OR COMPLAINTS OF PAIN NOTED AT THIS TIME. PT. WITH LEFT AC 22 GAUGE PERIPHERAL IV PRESENT, PATENT AND INTACT ADMINISTERING TO PT. D5 1/2 NS @ 125 ML/HR. BED LOCKED AND IN LOWEST POSITION, SIDE RAILS UP X2, CALL LIGHT WITHIN REACH, WILL CONTINUE TO MONITOR.
[2017-09-07 20:00] VITALS: BP 94/53
[2017-09-08] MEDS: IV D5/0.45 NACL 1,000 ML IV PRN ×2 (04:37→14:42)
[2017-09-08] MEDS: HYDROMORPHONE 1 MG/1 ML DISP.SYRIN IV PRN ×4 (04:37→20:30)
[2017-09-08] MEDS: PIPERACILLIN /TAZOBACTAM 3.375 G in IV D5W 50 ML IV SCH ×3 (06:06→17:11)
--- NOTE | 2017-09-08 06:43 | NUR ---
MS/RN NOTES PT. IS LYING IN BED RESTING. BREATHING EVEN AND UNLABORED ON ROOM AIR. NO SOB, RESPIRATORY DISTRESS OR COMPLAINTS OF PAIN NOTED AT THIS TIME. PT. WITH LEFT AC 22 GAUGE PERIPHERAL IV PRESENT, PATENT AND INTACT ADMINISTERING TO PT. D5 1/2 NS @ 125 ML/HR. PT. HAD 8 SMALL SOFT BM'S WITH BLOOD NOTED THROUGHOUT SHIFT. ALL PT. NEEDS MET. BED LOCKED AND IN LOWEST POSITION, SIDE RAILS UP X2, CALL LIGHT WITHIN REACH, WILL ENDORSE TO DAYSHIFT NURSE FOR CONTINUITY OF CARE.
--- NOTE | 2017-09-08 07:50 | NUR ---
MS RN OPENING NOTE PATIENT IS ALERT AND ORIENTED x4. NO PAIN AT THIS TIME. NO SOB OR DISTRESS NOTED. CALL LIGHT WITHIN REACH. SAFETY MEASURES IMPLEMENTED. ABLE TO COMMUNICATE. IV ON LEFT AC INTACT AND PATENT, NO REDNESS OR SWELLING NOTED. IV FLUIDS RUNNING AT 125 ML/HR TOLERATING WELL. SOFT DIET. HAS LOOSE BM WITH SOME BLOOD. PATIENT HAS BEDSIDE COMMODE, ENCOURAGE TO USE BSC IF NOT ABLE TO REACH RESTROOM. WILL CONTINUE TO MONITOR THROUGHOUT SHIFT
[2017-09-08 08:26] VITALS: BP 103/50
[2017-09-08] MEDS: MESALAMINE 400 MG CAP PO SCH ×2 (09:06→17:11)
--- NOTE | 2017-09-08 11:40 | NUR ---
MS RN NOTE PATIENT REFUSING TO HAVE LABS DONE. CHARGE NURSE AWARE. EXPLAINED RISKS AND BENEFITS OF LAB DRAW, PATIENT STILL REFUSING WILL NOTIFY MD.
[2017-09-08] MEDS: predniSONE 20 MG TABLET PO SCH ×2 (12:05→17:11)
--- NOTE | 2017-09-08 12:24 | NUR ---
MS RN NOTE PATIENT IS REFUSING TO HAVE ADL'S AND CHANGING DONE. PATIENT KEEPS SAYING "NO, NOT RIGHT NOW LATER" WHEN ASKED LATER PATIENT BECOMES UPSET AND BECOMES VERBALLY ABUSIVE TO STAFF. INFORMED PATIENT THAT WE ARE HERE TO HELP AND ENCOURAGED HER TO LET US KNOW WHEN SHE NEEDS HELP. CHARGE NURSE INFORMED
[2017-09-08 16:00] VITALS: BP 112/60
--- NOTE | 2017-09-08 18:32 | NUR ---
MS RN CLOSING NOTE PATIENT IS ALERT AND ORIENTED x4. NO PAIN AT THIS TIME. NO SOB OR DISTRESS NOTED. CALL LIGHT WITHIN REACH AT ALL TIMES.SAFETY MEASURES IMPLEMENTED. ABLE TO COMMUNICATE NEEDS. ALL DUE MEDICATIONS GIVEN ORDERED. PAIN MEDICATION CHANGED Q4H TO Q6H, MADE PATIENT AWARE. PATIENT THROUGHOUT SHIFT WAS BEING VERBALLY AGGRESSIVE WITH MYSELF AND OTHER STAFF MEMBERS, INFORMED HER THAT WE ARE HERE TO HELP AND SHE PROCEEDED TO SAY " STUPID BITCH" REPEATEDLY. PATIENT THEN CALMED DOWN, BUT HAS PERIODS OF VERBAL AGGRESSION. IV ON LEFT AC RUNNING AT 125 ML/HR. ENCOURAGING PO INTAKE. MULTIPLE LOOSE STOOLS WITH BLEEDING NOTED, MD AWARE. NO NEW ORDERS AT THIS TIME. WILL ENDORSE TO ONLINE MARKETING SPECIALIST NURSE
--- NOTE | 2017-09-08 19:00 | NUR ---
MS POND OPENING NOTES PATIENT RESTING IN BED A/O X 1, NO ACUTE DISTRESS NOTED. BREATHING EVEN AND UNLABORED, NO SOB NOTED. SAFETY MEASURES IN PLACE, BED LOCKED AND IN LOWEST POSITION, CALL LIGHT IN REACH. WILL CONTINUE TO MONITOR. Addendum: 09/08/17 at 1937 by LIZ CARROLL RN CORRECTION: A/O X4
[2017-09-08 20:00] VITALS: BP 100/50
--- NOTE | 2017-09-08 20:00 | NUR ---
CHARGE NURSE NOTES WHEN I MADE MY ROUNDS I HEARD HER SCREAMING SO I WENT TO HER ROOM AND FOUND HER SCREAMING TO OUR SUPERVISOR [employer] BRITTANEY AND SAYING "F" WORDS WHILE OUR SUPERVISOR [employer] WAS CLEANING HER UP. SHE EVEN ACCUSING HER THAT SHE'S NOT NICE TO HER AND WAS PINCHING HER. I EXPLAINED TO HER THAT OUR SUPERVISOR [employer] WAS TRYING TO CLEAN HER BECAUSE SHE MADE A BIG BOWEL MOVEMENT AND IT'S ALL OVER THE FLOOR. PT. IS VERBALLY ABUSIVE AND DOESN'T LISTEN TO MY EXPLANATION. JUST TO PREVENT FURTHER ARGUMENT, I EXCHANGE HER SUPERVISOR [employer]
[2017-09-08 20:28] VITALS: BP 100/50
[2017-09-09] MEDS: PIPERACILLIN /TAZOBACTAM 3.375 G in IV D5W 50 ML IV SCH ×2 (00:41→05:12)
[2017-09-09] MEDS: IV D5/0.45 NACL 1,000 ML IV PRN (00:42)
[2017-09-09] MEDS: HYDROMORPHONE 1 MG/1 ML DISP.SYRIN IV PRN ×2 (02:30→08:21)
--- NOTE | 2017-09-09 06:26 | NUR ---
MS RN CLOSING NOTES PATIENT COMFORTABLY ASLEEP AND EASILY AWAKEN. HEAD OF BED ELEVATED FOR BETTER LUNG EXPANSION TOLERATING ROOM AIR 98% IV SITE NO S/S OF INFILTRATED PATENT AND FLUSHED, ON ATB WITH NO A/R NOTED. IN STABLE CONDITION. RESPIRATIONS EVEN AND UNLABORED. NO S/S OF ACUTE DISTRESS, AFEBRILE. NURSING CARE RENDERED, NEEDS ATTENDED AND ANTICIPATED, KEPT CLEAN AND DRY AND COMFORTABLE, GOOD SKIN CARE PROVIDED. FREQUENT VISUAL CHECK DONE FOR SAFETY EVERY 2 HOURS. SAFE HAZARD FREE ENVIRONMENT PROVIDED. CALL LIGHT WITHIN EASY TO REACH, ON LOW BED AT ALL TIMES TO ENSURE SAFETY, WILL ENDORSE TO THE NEXT SHIFT CONTINUE PLAN OF CARE. NO COMPLAINS OF PAIN AT THIS TIME. .
[2017-09-09 08:00] VITALS: BP 104/71
--- NOTE | 2017-09-09 08:00 | NUR ---
MS RN OPENING NOTES PT IS ALERT AND ORIENTED X4. PATIENT IS RESTING IN BED. WILL CONTINUE TO MONITOR FOR PAIN AND BLEEDING IN THE STOOL. BED IS LOCKED AND LOWERED. SIDE RAILS ARE UP X2.
--- NOTE | 2017-09-09 08:15 | NUR ---
DR MORENO (GI CONSULT) CALLED AND CHECKED ON THE PT AND MADE AWARE THAT THE PT ONLY WANTED HER DILAUDID AND SCREAMS IF SHE DOESN'T GETS IT EARLIER ORDERED.STAYED FIRM WITH THE PT REGARDING HER PAIN MEDS.REINFORCE MED TEACHING TO THE PT AND ITS SIDE EFFECTS.PT REFUSED GI CONSULT AND WAS CUSSING AND SCREAMING AT DR MORENO DURING HIS VISIT FOR GI CONSULT YESTERDAY.NO GI CONSULT FOLLOW UP ORDERED.
[2017-09-09] MEDS: MESALAMINE 400 MG CAP PO SCH (08:22)
[2017-09-09] MEDS: predniSONE 20 MG TABLET PO SCH (08:26)
--- NOTE | 2017-09-09 08:30 | NUR ---
RN NOTES PATIENT IS NONCOMPLIANT. PATIENT HAS BLOODY DIARRHEA. OFFERED LETTY CARE BUT PATIENT REFUSED. REFUSED TO BE CLEAN. PATIENT IS VERBALLY ABUSIVE, CUSSING AT STAFF. REFUSING CARE. REFUSING GI CONSULT,CUSSING AT THE DOCTOR. ATE 100% OF BREAKFAST. WITH ONGOING IVF OF D51/2 NS AT 125 ML/HR INFUSING WELL.CALL LIGHT PLACED WITHIN REACH.WILL CONTINUE TO MONITOR.REINFORCE PT TEACHING TO THE PT EXPLAINING THE IMPORTANCE OF TX AND ITS BENEFITS,RISKS AND CONSEQUENCES.
[2017-09-09 10:46] LABS: EOSINOPHILS % (AUTO) 0.1 % (0.0-6.0); HEMATOCRIT 24 % (33-45); HEMOGLOBIN 7.3 g/dL (11.5-14.8); LYMPHOCYTES # (AUTO) 1.1 /CMM (0.8-4.8); MEAN CORPUSCULAR HEMOGLOBIN 21 PG (26.0-33.0); MEAN CORPUSCULAR HGB CONC 30 g/dl (31.0-36.0); MEAN CORPUSCULAR VOLUME 68 fL (82-100); MONOCYTES # (AUTO) 0.9 /CMM (0.1-1.30); MONOCYTES % (AUTO) 5.9 % (2.0-12.0); PLATELET COUNT (AUTO) 558 /CMM (150-450); RDW COEFFICIENT OF VARIATION 22.6 (11.5-15.0); RED BLOOD CELL COUNT(AUTO) 3.53 MIL/uL (4.0-5.2)
--- NOTE | 2017-09-09 11:00 | NUR ---
MS RN NOTES PATIENT EDUCATION DISCHARGE INSTRUCTIONS GIVEN. PRESCRIPTION MEDICATION LIST WAS PROVIDED. PATIENT REFUSED TO HAVE HER BELONGINGS CHECKED AND CUSSED AT STAFF.
[2017-09-09 11:01] LABS: ALBUMIN 1.5 g/dL (3.4-5.0); BILIRUBIN,TOTAL 0.1 mg/dL (0.2-1.0); CALCIUM, SERUM 7.6 mg/dL (8.5-10.1); CREATININE 0.4 mg/dL (0.6-1.3); TOTAL PROTEIN, SERUM 4.5 g/dL (6.4-8.2)
--- NOTE | 2017-09-09 11:15 | NUR ---
SW had attempted to see pt. again regarding offering [facility] resources and placement, however pt. is verbally abusive and cussed at SW stating " Leave me alone lady, I do not need anything from you". Pt. declined any assistance from SW.
--- NOTE | 2017-09-09 11:30 | NUR ---
MS RN NOTES PATIENT TRIED TO WALK TO THE ELEVATOR ON THE UNIT WITH PERIPHERAL IV. PATIENT SCREAMING AND CUSSING AT STAFF. IV HEP LOCK WAS REMOVED WITH NO BLEEDING NOTED. PATIENT WAS ESCORTED BY SECURITY AND 2 RN'S OUTSIDE THE MAIN LOBBY WITH WHEELCHAIR. TRANSFERRED TO THE [facility]. AWAITING FOR HER FRIEND TO PICK HER UP. SPOKE TO THE SCHOOL LIBRARIAN REJI AND SUPERINTENDENT HOUSE ULISES WHO STATED THAT THE PATIENT CUSSED AND YELLED AT THEM REFUSING HELP.
[2017-09-09 11:38] LABS: BAND % (MANUAL) 19 % (0.0-5.0); LYMPHOCYTES % (MANUAL) 11 % (16-48); METAMYELOCYTES % 2 % (0-0); MONOCYTES % (MANUAL) 6 % (0-11.0); NEUTROPHILS % (MANUAL) 62 (42-76)
== END 2017-09-09 11:30 | disposition home or self-care (01) | DRG 245 ==
LOC: ER 08:32 → MED 15:24
PROVIDERS: ADMIT Internal Medicine; ATTEND Internal Medicine
DX: K51.911 Ulcerative colitis, unspecified with rectal bleeding (principal); E44.0 Moderate protein-calorie malnutrition; E87.1 Hypo-osmolality and hyponatremia; D63.8 Anemia in other chronic diseases classified elsewhere; F11.20 Opioid dependence, uncomplicated; Z68.20 Body mass index [BMI] 20.0-20.9, adult; Z59.0 Homelessness
CPT/HCPCS: 36415; 71010-TC; 80048-TC; 80053-TC; 80061-TC; 80076-TC; 81000-TC; 82272-TC; 83540-TC; 83605-TC; 83690-TC; 83735-TC; 84100-TC; 84703-TC; 85025-TC; 85730-TC; 87040-TC; 87081-TC; 87086-TC; A4216; A4606; J0500; J1170; J2270; J2405; J2543; J3370; J3475; J3490; J7030; J7040; J7060; Z7610